=== PATIENT | female | born 1985 | race Caucasian/White ===

== ENCOUNTER 2016-04-24 06:35 | Inpatient (IN) | payer OTHER ==
[~2016-04-24] VITALS: Ht 162.6 cm; Wt 98.5 kg
--- NOTE | ~2016-04-24 | OR ---
PATIENT'S NAME: NORBERT [facility] AGE: 30 [address] ROOM: [address] [address] LOCATION: [facility] ADMIT DATE: 04/24/2016 OR/Procedure Report DISCHARGE DATE: FAMILY PHYSICIAN: Darlene Carter MD ATTENDING PHYSICIAN: MAIA FAY SURGEON: Maia Fay MD FLOOR RENOVATOR: None. DATE OF PROCEDURE: 04/25/2016 PROCEDURE PERFORMED: Spontaneous vaginal delivery over intact perineum. PRE-DELIVERY DIAGNOSES: 1. Intrauterine at 39 weeks and 5 days. 2. Gestational hypertension. 3. Rh-negative status. POST-DELIVERY DIAGNOSES: 1. Intrauterine at 39 weeks and 5 days. 2. Gestational hypertension. 3. Rh-negative status. ANESTHESIA: Epidural. ANTIBIOTICS: None indicated. ESTIMATED BLOOD LOSS: 400 mL. FINDINGS: Viable male infant with score of 8 and 9 and a weight of 6 pounds 8 ounces. Intact placenta with 3-vessel cord. Second-degree perineal laceration and right periurethral laceration. SPECIMENS: Cord blood and placenta. COMPLICATIONS: None. DISPOSITION: The patient is stable and remained in care. INDICATIONS FOR THE PROCEDURE: The patient is a 30-year-old G1, P0, who had been followed in the office for normal other than Rh-negative status. The patient was noted to have elevated blood pressures with the second one occurring when she was 39 weeks and 3 days, and it was recommended to undergo induction of labor secondary to gestational hypertension. CBC and CMS were within normal limits and protein to creatinine ratio was 0.1. The patient had no severe range blood pressures in the office or during the early stages of labor. Cervix was 1 cm dilated and approximately 50% effaced on PATIENT'S NAME: NORBERT PLASENCIA [facility] AGE: 30 Y [address] ROOM: [address] [address] LOCATION: [facility] ADMIT DATE: 04/24/2016 OR/Procedure Report DISCHARGE DATE: FAMILY PHYSICIAN: Darlene Carter MD ATTENDING PHYSICIAN: MAIA FAY admission on 04/24/2016. Attempt was made for Bueno bulb placement but was unsuccessful. 25 mcg of Cytotec was placed. The patient was checked approximately 4 hours later and had not made much change in her cervix. She was noted to be idania every 2-5 minutes, and decision was made to start Pitocin at that time. The patient continued on Pitocin for labor induction. An AROM was performed at approximately 2200 hours that evening with clear fluid noted. The patient then progressed rapidly through labor and was noted to be complete at 0400 hours on 04/25/2016. DESCRIPTION OF PROCEDURE: With expulsive efforts, the patient delivered the head over an intact perineum. Head was allowed to restitute and then with gentle downward traction and upward traction with the assistance of maternal expulsive efforts, shoulders and remainder of body delivered. was placed on mother's chest. Cord was clamped and cut. Infant was noted to have a vigorous cry. IV Pitocin was started per protocol. Gentle downward traction was placed on the cord. At that time, it did not appear that placental delivery would be immediate, so attention was turned to inspection for lacerations. The patient was noted to have a second-degree perineal as well as a right periurethral laceration. The right periurethral was repaired with a 4-0 Vicryl per routine and was hemostatic. Attention was then turned back to the placenta and gentle downward traction was again applied, and placenta was able to be delivered. Cervix was inspected with findings of no lacerations. The second-degree perineal laceration was repaired per routine with 2-0 Vicryl. All needle, sponge, and instrument counts were noted to be correct x2, and the patient and remained in her room. MAIA FAY MD GT/modl /[id number] d: 04/25/16 0703 t: 04/26/16 0904, OPERATIVE SUMMARY
[~2016-04-24 06:35] MED LIST: PRENATAL 1+1)(P1 TAB PO; TUMS REGULAR ST1 TAB PO
[2016-04-24 07:47] LABS: BASOPHIL % 0.3 %; EOSINOPHIL # 0.1 K/uL (0.0-0.5); EOSINOPHIL % 0.6 %; HEMATOCRIT 37.1 % (33.0-46.0); HEMOGLOBIN 12.9 g/dL (11.0-15.0); IMMATURE GRANULOCYTE % 0.4 %; LYMPHOCYTE # 3.2 K/uL (0.8-4.0); MCH 29.9 pg (27.0-34.0); MCHC 34.8 gm/dL (32.0-36.5); MCV 85.9 fl (83.0-98.0); MONOCYTE # 0.7 K/uL (0.0-1.0); MONOCYTE % 7.6 %; MPV 10.8 fl (9.4-12.4); NEUTROPHIL # (ANC) 5.2 K/uL (1.8-7.8); NEUTROPHIL % 56.1 %; NRBC % 0 /100WBC (0-0.00); PLATELET COUNT 199 K/uL (150-450); RBC 4.32 M/uL (3.50-5.50); RDW-CV 14.2 % (11.9-14.6); WBC 9.2 K/uL (4.0-11.0)
--- NOTE | 2016-04-25 18:34 | NUR ---
patient's vital signs are good. firm and evenn to 1 finger down. needs rhogam tomorrow. has voided several times today. has dermaplast, tuck's and nipple cream. Motrin at 0704 and 1652
--- NOTE | 2016-04-26 04:45 | NUR ---
VSS. Fundus Firm and midline. Independent with all cares. Home today.
[2016-04-26 06:39] LABS: ALK PHOS 127 IU/L (33-138); ALT 15 IU/L (12-78); ANION GAP 11.9 (10.0-19.0); AST 27 IU/L (10-40); BLOOD UREA NITROGEN 9 mg/dL (6-24); CALCIUM 7.8 mg/dL (8.5-10.5); CHLORIDE 108 mMol/L (96-110); CO2 26 mMol/L (22-32); CREATININE 0.6 mg/dL (0.5-1.1); ESTIMATED GFR (MDRD EQUATION) > 60; POTASSIUM 3.9 mMol/L (3.7-5.1); SODIUM 142 mMol/L (135-145); TOTAL PROTEIN 5.2 g/dL (6.0-8.4)
[2016-04-26 06:40] LABS: TOTAL BILIRUBIN 0.2 mg/dL (0.0-1.5)
[2016-04-26 08:10] LABS: BASOPHIL % 0.3 %; EOSINOPHIL # 0.1 K/uL (0.0-0.5); EOSINOPHIL % 0.6 %; HEMATOCRIT 31.8 % (33.0-46.0); HEMOGLOBIN 10.5 g/dL (11.0-15.0); IMMATURE GRANULOCYTE # 0.1 K/uL (0.0-0.3); IMMATURE GRANULOCYTE % 0.6 %; LYMPHOCYTE # 4.4 K/uL (0.8-4.0); LYMPHOCYTE % 31.1 %; MCV 87.8 fl (83.0-98.0); MONOCYTE # 0.9 K/uL (0.0-1.0); MONOCYTE % 6.6 %; MPV 10.1 fl (9.4-12.4); NEUTROPHIL # (ANC) 8.5 K/uL (1.8-7.8); NEUTROPHIL % 60.8 %; NRBC % 0 /100WBC (0-0.00); PLATELET COUNT 198 K/uL (150-450); RBC 3.62 M/uL (3.50-5.50); RDW-CV 14.7 % (11.9-14.6)
[2016-04-26] MEDS ORDERED: APNO TOP (11:59)
[2016-04-26] MEDS ORDERED: MOTRIN800 MG PO (11:59)
[2016-04-26] MEDS ORDERED: SURFAK240 MG PO (11:59)
[2016-04-26] MEDS ORDERED: LANSINOH7 GM (12:00)
[2016-04-26] MEDS ORDERED: TUCKS1 EACH TOP (12:00)
[2016-04-26] MEDS ORDERED: NORCO 5-325 TA1 EACH PO (12:02)
== END 2016-04-26 14:30 | disposition disaster alternative care site (69) | DRG 775 ==
LOC: GOBS 06:35 → EDSTATUS 04-27 06:34 → GOBM 04-27 11:52
PROVIDERS: ADMIT Obstetrics & Gynecology
PROC: 3E033VJ Introduction of Other Hormone into Peripheral Vein, Percutaneous Approach (ICD-10-PCS; principal; 2016-04-25)
PROC: 3E0P7GC Introduction of Other Therapeutic Substance into Female Reproductive, Via Natural or Artificial Opening (ICD-10-PCS; principal; 2016-04-25)
PROC: 10907ZC Drainage of Amniotic Fluid, Therapeutic from Products of Conception, Via Natural or Artificial Opening (ICD-10-PCS; principal; 2016-04-25)
PROC: 10E0XZZ Delivery of Products of Conception, External Approach (ICD-10-PCS; principal; 2016-04-25)
PROC: 0KQM0ZZ Repair Perineum Muscle, Open Approach (ICD-10-PCS; principal; 2016-04-25)
DX: O13.4 Gestational [pregnancy-induced] hypertension without significant proteinuria, complicating childbirth (principal); O70.1 Second degree perineal laceration during delivery; Z3A.39 39 weeks gestation of pregnancy; Z37.0 Single live birth
CPT/HCPCS: J2590; J2791; J3010; J7120